=== PATIENT | female | born 1950 | race Caucasian/White ===

== ENCOUNTER → 2018-01-08 | Outpatient (CLI) | payer MEDICARE ==
--- NOTE | 2018-01-09 07:11 | MM ---
Reason for exam: screening (asymptomatic). Last mammogram was performed 1 year and 6 months ago. History: Patient is postmenopausal. Excisional biopsy of the right breast. Physical Findings: A clinical breast exam by your physician is recommended on an annual basis and results should be correlated with mammographic findings. MG 3D Screening Mammo W/Cad Bilateral CC and MLO view(s) were taken. Prior study comparison: July 22, 2016, bilateral MG 3d screening mammo w/cad. January 06, 2015, bilateral MG screening mammo w CAD. There are scattered fibroglandular densities. There is chronic nodularity in the left breast. There is no discrete abnormality. ASSESSMENT: Benign, BI-RAD 2 RECOMMENDATION: Routine screening mammogram of both breasts in 1 year.
== END | disposition home or self-care (01) ==
LOC: RADMAMWWP 10:42
PROVIDERS: ATTEND Family Medicine
DX: Z12.31 Encounter for screening mammogram for malignant neoplasm of breast (principal)
CPT/HCPCS: 77063; 77067

== ENCOUNTER → 2019-07-17 | Outpatient (CLI) | payer MEDICARE ==
--- NOTE | 2019-07-17 09:41 | XR ---
EXAMINATION TYPE: XR shoulder complete RT DATE OF EXAM: 07/17/2019 CLINICAL HISTORY: pain TECHNIQUE: Three views of the right shoulder are obtained. COMPARISON: None FINDINGS: There is no acute fracture/dislocation evident. The acromioclavicular and glenohumeral zaida int spaces appear within normal limits. The visualized ribs are intact and unremarkable. IMPRESSION: 1. There is no acute fracture or dislocation. ICD 10 NO FRACTURE, INITIAL EVALUATION
== END | disposition home or self-care (01) ==
LOC: RADXRYALE 09:16
PROVIDERS: ATTEND Physician Assistant Medical
DX: M25.511 Pain in right shoulder (principal)

== ENCOUNTER → 2019-10-01 | Outpatient (CLI) | payer MEDICARE ==
--- NOTE | 2019-10-01 13:57 | MM ---
Reason for exam: screening (asymptomatic). Last mammogram was performed 1 year and 9 months ago. History: Patient is postmenopausal. Excisional biopsy of the right breast. Physical Findings: A clinical breast exam by your physician is recommended on an annual basis and results should be correlated with mammographic findings. MG 3D Screening Mammo W/Cad Bilateral CC and MLO view(s) were taken. Prior study comparison: January 08, 2018, bilateral MG 3d screening mammo w/cad. July 22, 2016, bilateral MG 3d screening mammo w/cad. The breast tissue is heterogeneously dense. This may lower the sensitivity of mammography. There are benign appearing round calcifications bilaterally. There is no discrete abnormality. ASSESSMENT: Benign, BI-RAD 2 RECOMMENDATION: Routine screening mammogram of both breasts in 1 year.
== END ==
LOC: RADMAMWWP 10:57
PROVIDERS: ATTEND Family Medicine
DX: Z12.31 Encounter for screening mammogram for malignant neoplasm of breast (principal)
CPT/HCPCS: 77063; 77067

== ENCOUNTER → 2019-10-30 | Outpatient (CLI) | payer MEDICARE ==
--- NOTE | 2019-10-30 15:44 | BD ---
EXAMINATION TYPE: Axial Bone Density DATE OF EXAM: 10/30/2019 COMPARISON: 08/31/2015 CLINICAL HISTORY: Height: 64.2 IN Weight: 137 LBS FRAX RISK QUESTIONS: RISK FACTORS HISTORY OF: Active: YES Diet low in dairy products/other sources of calcium: YES Postmenopausal woman: AGE 46 MEDICATIONS: Thyroid Medications: YES Which medication: Levothyroxine How Lon+ YEARS Additional Medications: MULTI VIT, LEVOTHYROXINE, SIMVASTATIN EXAM MEASUREMENTS: Bone mineral densitometry was performed using the [employer] System. Bone mineral density as measured about the Lumbar spine is: ----- L1-L4(G/cm2): 1.093 T Score Values are as follows: ----- L2: -0.8 ----- L3: 0.4 ----- L4: -0.2 ----- L1-L4: -0.7 Bone mineral density has: Decreased -0.8% since study of: 08/31/2015 Bone mineral density about the R hip (g/cm2): 0.707 Bone mineral density about the L hip (g/cm2): 0.701 T Score values are as follows: -----R Neck: -2.4 -----L Neck: -2.4 -----R Total: -2.2 -----L Total: -2.3 Bone mineral density has: Decreased -6.8% since study of: 08/31/2015 IMPRESSION: Osteopenia (T Score between -2.5 and -1). There is slightly increased risk of fracture and the patient may be considered for treatment. Re-Screen 2-5 years. NOTE: T-SCORE=SD OF THE YOUNG ADULT MEAN.
== END | disposition home or self-care (01) ==
LOC: RADBDWWP 12:48
PROVIDERS: ATTEND Family Medicine
DX: M85.88 Other specified disorders of bone density and structure, other site (principal)
CPT/HCPCS: 77080

== ENCOUNTER → 2021-02-02 | Outpatient (CLI) | payer MEDICARE ==
--- NOTE | 2021-02-04 09:09 | MM ---
Reason for exam: screening (asymptomatic). Last mammogram was performed 1 year and 4 months ago. History: Patient is postmenopausal. Excisional biopsy of the right breast. Physical Findings: A clinical breast exam by your physician is recommended on an annual basis and results should be correlated with mammographic findings. MG 3D Screening Mammo W/Cad Bilateral CC and MLO view(s) were taken. Prior study comparison: October 01, 2019, bilateral MG 3d screening mammo w/cad. January 08, 2018, bilateral MG 3d screening mammo w/cad. There are scattered fibroglandular densities. No significant changes when compared with prior studies. ASSESSMENT: Negative, BI-RAD 1 RECOMMENDATION: Routine screening mammogram of both breasts in 1 year.
== END | disposition home or self-care (01) ==
LOC: RADMAMWWP 07:48
PROVIDERS: ATTEND Family Medicine
DX: Z12.31 Encounter for screening mammogram for malignant neoplasm of breast (principal); Z78.0 Asymptomatic menopausal state
CPT/HCPCS: 77063; 77067

== ENCOUNTER → 2022-07-13 | Outpatient (CLI) | payer MEDICARE ==
--- NOTE | 2022-07-13 09:35 | BD ---
EXAMINATION TYPE: Axial Bone Density DATE OF EXAM: 07/13/2022 COMPARISON: 10/30/2019 CLINICAL HISTORY: 72 years year old Female. ICD-10 CODE: M85.9 DISORDER OF BONE DENSITY Height: 64 IN Weight: 133 LBS RISK FACTORS HISTORY OF: Active: YES Postmenopausal woman: AGE 46 MEDICATIONS: Thyroid Medications: YES Which medication: Levothyroxine How Lon+ YEARS Additional Medications: CALCIUM, VIT D,LEVOTHYROXINE, SIMVASTATIN, Additional History: MELANOMA EXAM MEASUREMENTS: Bone mineral densitometry was performed using the [employer] System. Bone mineral density as measured about the Lumbar spine is: ----- L1-L4(G/cm2): 1.091 T Score Values are as follows: ----- L1: -2.4 ----- L2: -1.5 ----- L3: 0.2 ----- L4: 0.3 ----- L1-L4: -0.7 Bone mineral density has: Decreased -1.2% since study of: 10/30/2019 Bone mineral density about the R hip (g/cm2): 0.777 Bone mineral density about the L hip (g/cm2): 0.700 T Score values are as follows: -----R Neck: -1.9 -----L Neck: -2.4 -----R Total: -2.2 -----L Total: -2.4 Bone mineral density has: Decreased -1.1% since study of: 10/30/2019 FRAX%s: The graph provided illustrates a 15.0 chance for a major osteoporotic fx and a 4.5 chance for the hips probability for fx in 10 years time. IMPRESSION: Osteopenia (T Score between -2.5 and -1) is redemonstrated. There is slightly increased risk of fracture and the patient may be considered for treatment. Re-Screen 2-5 years. NOTE: T-SCORE=SD OF THE YOUNG ADULT MEAN.
--- NOTE | 2022-07-14 20:01 | MM ---
Reason for Exam: Screening (asymptomatic). Last mammogram was performed 1 year(s) and 6 month(s) ago. Patient History: Menarche at age 12. First Full-Term at age 22. Postmenopausal. Excisional Biopsy on the Right side. Mother had ovarian cancer, age 53. Risk Values: Aurora 5 year model risk: 1.9%. NCI Lifetime model risk: 4.6%. Prior Study Comparison: 01/08/2018 Bilateral Screening Mammogram, [facility]. 10/01/2019 Bilateral Screening Mammogram, [facility]. 02/02/2021 Bilateral Screening Mammogram, [facility]. Tissue Density: There are scattered fibroglandular densities. Findings: Analyzed By CAD. There is no suspicious group of microcalcifications or new suspicious mass in either breast. Overall Assessment: Negative, BI-RAD 1 Management: Screening Mammogram of both breasts in 1 year. 1. Patient should continue monthly self breast exams. 2. A clinical breast exam by your physician is recommended on an annual basis. 3. This exam should not preclude additional follow-up of suspicious palpable abnormalities. Electronically signed and approved by: Coco Park M.D. Radiologist
== END | disposition home or self-care (01) ==
LOC: RADMAMWWP 07:33
PROVIDERS: ATTEND Family Medicine
DX: Z12.31 Encounter for screening mammogram for malignant neoplasm of breast (principal); M85.89 Other specified disorders of bone density and structure, multiple sites; Z78.0 Asymptomatic menopausal state; Z80.41 Family history of malignant neoplasm of ovary
CPT/HCPCS: 77063; 77067; 77080

== ENCOUNTER 2024-02-05 13:41 | Inpatient (IN) | payer MEDICARE ==
--- NOTE | 2024-02-05 13:59 | ED ---
General Adult HPI - General Chief complaint: Abdominal Pain Stated complaint: Vomiting Time Seen by Provider: 02/05/24 13:48 Source: patient, family, RN notes reviewed Mode of arrival: ambulatory Limitations: no limitations - History of Present Illness Initial comments: Patient is a pleasant 74-year-old female present to the emergency department with concerns for nausea and vomiting. Onset of symptoms was just a couple hours ago. Patient has vomited 4 times. No constipation or diarrhea. No fever. Patient does have some epigastric discomfort that seems to radiate towards the back. No chest pain. No history of similar symptoms previously. - Related Data Home Medications Medication Instructions Recorded Confirmed Calcium Carbonate [Calcium] 600 mg PO HS 02/05/24 02/05/24 Levothyroxine Sodium [Synthroid] 50 mcg PO DAILY 02/05/24 02/05/24 Multivitamins, Thera [Multivitamin 1 tab PO HS 02/05/24 02/05/24 (formulary)] Simvastatin [Zocor] 40 mg PO HS 02/05/24 02/05/24 diphenhydrAMINE HCL [Benadryl] 25 mg PO HS 02/05/24 02/05/24 Allergies Allergy/AdvReac Type Severity Reaction Status Date / Time No Known Allergies Allergy Verified 02/05/24 18:09 Review of Systems ROS Statement: Those systems with pertinent positive or pertinent negative responses have been documented in the HPI. ROS Other: All systems not noted in ROS Statement are negative. Constitutional: Denies: fever Eyes: Denies: eye pain ENT: Denies: ear pain Respiratory: Denies: cough, dyspnea Cardiovascular: Denies: chest pain Endocrine: Denies: fatigue Gastrointestinal: Reports: as per HPI, abdominal pain, nausea, vomiting Genitourinary: Denies: dysuria Musculoskeletal: Reports: as per HPI Skin: Denies: rash Neurological: Denies: weakness Past Medical History Past Medical History: Hyperlipidemia, Thyroid Disorder Past Surgical History: Orthopedic Surgery General Exam Limitations: no limitations General appearance: alert, in no apparent distress Head exam: Present: normocephalic Eye exam: Present: normal appearance Neck exam: Present: normal inspection Respiratory exam: Present: normal lung sounds bilaterally Cardiovascular Exam: Present: regular rate, normal rhythm Expanded Peripheral pulses: 2+: Radial (R), Radial (L), Dorsalis Pedis (R), Dorsalis Pedis (L) GI/Abdominal exam: Present: soft, tenderness (Moderate discomfort epigastrium and right upper quadrant), normal bowel sounds. Absent: distended, guarding, rebound, rigid, pulsatile mass Extremities exam: Present: normal inspection. Absent: pedal edema, calf tenderness Neurological exam: Present: alert Psychiatric exam: Present: normal affect, normal mood Skin exam: Present: normal color Course Vital Signs 02/05/24 02/05/24 02/05/24 13:43 14:00 15:00 Temperature 97.5 F L Pulse Rate 68 85 84 Respiratory 20 18 18 Rate Blood Pressure 181/92 169/79 161/80 O2 Sat by Pulse 99 98 98 Oximetry 02/05/24 02/05/24 16:00 17:00 Temperature Pulse Rate 82 80 Respiratory 18 18 Rate Blood Pressure 147/76 160/86 O2 Sat by Pulse 98 98 Oximetry EKG Findings - EKG Results: EKG: interpreted by ERMD, sinus rhythm, normal axis, normal QRS, normal ST/T Medical Decision Making - Medical Decision Making Was pt. sent in by a medical professional or institution (, PA, RN OTOLARYNGOLOGY, urgent care, hospital, or intermediate...) When possible be specific @ -No Did you speak to anyone other than the patient for history (EMS, parent, family, police, friend...)? What history was obtained from this source @ -No Did you review nursing and triage notes (agree or disagree)? Why? @ -I reviewed and agree with nursing and triage notes Were old charts reviewed (outside hosp., previous admission, EMS record, old EKG, old radiological studies, urgent care reports/EKG's, intermediate records)? Report findings @ -No old charts were reviewed Differential Diagnosis (chest pain, altered mental status, abdominal pain women, abdominal pain men, vaginal bleeding, weakness, fever, dyspnea, syncope, headache, dizziness, GI bleed, back pain, seizure, CVA, palpatations, mental health, musculoskeletal)? @ -Differential Abdominal Pain Women: Appendicitis, Cholecystitis, diverticulosis, ischemic bowel, pancreatitis, hepatitis, UTI, gastroenteritis, AAA, incarcerated hernia, bowel obstruction, constipation, inflammatory bowel, hepatitis, peptic ulcer disease, splenic infarction, perforated viscus, vulvitis, ovarian torsion, PID, kidney stone, placenta abruption, this is not meant to be an all-inclusive list EKG interpreted by me (3pts min.). @ -As above X-rays interpreted by me (1pt min.). @ -None done CT interpreted by me (1pt min.). @ -CT scan abdomen pelvis does show cholelithiasis and distended gallbladder with some intrahepatic ductal dilation U/S interpreted by me (1pt. min.). @ -None done What testing was considered but not performed or refused? (CT, X-rays, U/S, labs)? Why? @ -None What meds were considered but not given or refused? Why? @ -None Did you discuss the management of the patient with other professionals (professionals i.e. DrRiley, PA, RN OTOLARYNGOLOGY, lab, RT, psych nurse, social services coordinator, welding manager, teacher, head correction officer, casework supervisor)? Give summary @ -Case discussed with Dr. Rogers who will admit covering Dr. Nugent. Case also discussed with Dr. Reyes who will consult. Was smoking cessation discussed for >3mins.? @ -No Was critical care preformed (if so, how long)? @ -No Were there social determinants of health that impacted care today? How? (Homelessness, low income, unemployed, alcoholism, drug addiction, transportation, low edu. Level, literacy, decrease access to med. care, long-term, rehab)? @ -No Was there de-escalation of care discussed even if they declined (Discuss DNR or withdrawal of care, Hospice)? DNR status @ -No What co-morbidities impacted this encounter? (DM, HTN, Smoking, COPD, CAD, Cancer, CVA, ARF, Chemo, Hep., AIDS, mental health diagnosis, sleep apnea, morbid obesity)? @ -None Was patient admitted / discharged? Hospital course, mention meds given and route, prescriptions, significant lab abnormalities, going to OR and other pertinent info. @ -Patient reevaluated and still having discomfort. Patient and family updated on results and plan. Patient will be admitted with surgical consult. Admission orders written. Undiagnosed new problem with uncertain prognosis? @ -No Drug Therapy requiring intensive monitoring for toxicity (Heparin, Nitro, Insulin, Cardizem)? @ -No Were any procedures done? @ -No Diagnosis/symptom? @ -Pancreatitis Acute, or Chronic, or Acute on Chronic? @ -Acute Uncomplicated (without systemic symptoms) or Complicated (systemic symptoms)? @ -Default Side effects of treatment? @ -No Exacerbation, Progression, or Severe Exacerbation? @ -No Poses a threat to life or bodily function? How? (Chest pain, [place], [place], pneumonia, PE, COPD, DKA, ARF, appy, cholecystitis, CVA, Diverticulitis, Homicidal, Suicidal, threat to staff... and all critical care pts) @ -No - Lab Data Result diagrams: 02/05/24 14:07 02/05/24 14:07 Lab Results 02/05/24 02/05/24 02/05/24 Range/Units 14:07 14:07 14:07 WBC 16.8 H (3.8-10.6) k/uL RBC 5.39 (3.80-5.40) m/uL Hgb 15.9 (11.4-16.0) gm/dL Hct 48.0 H (34.0-46.0) % MCV 89.0 (80.0-100.0) fL MCH 29.5 (25.0-35.0) pg MCHC 33.1 (31.0-37.0) g/dL RDW 13.0 (11.5-15.5) % Plt Count 235 (150-450) k/uL MPV 8.2 Neutrophils % 80 % Lymphocytes % 14 % Monocytes % 5 % Eosinophils % 1 % Basophils % 1 % Neutrophils # 13.4 H (1.3-7.7) k/uL Lymphocytes # 2.3 (1.0-4.8) k/uL Monocytes # 0.8 (0-1.0) k/uL Eosinophils # 0.1 (0-0.7) k/uL Basophils # 0.1 (0-0.2) k/uL PT 10.6 (10.0-12.5) sec INR 1.0 (<1.2) APTT 22.7 (22.0-30.0) sec Sodium 140 (137-145) mmol/L Potassium 4.1 (3.5-5.1) mmol/L Chloride 105 (98-107) mmol/L Carbon Dioxide 28 (22-30) mmol/L Anion Gap 7 mmol/L BUN 22 H (7-17) mg/dL Creatinine 0.93 (0.52-1.04) mg/dL Est GFR (CKD-EPI)AfAm 70 (>60 ml/min/1.73 sqM) Est GFR (CKD-EPI)NonAf 61 (>60 ml/min/1.73 sqM) Glucose 132 H (74-99) mg/dL Calcium 9.6 (8.4-10.2) mg/dL Total Bilirubin 0.8 (0.2-1.3) mg/dL AST 40 H (14-36) U/L ALT 26 (4-34) U/L Alkaline Phosphatase 98 (38-126) U/L Troponin I (0.000-0.034) ng/mL Total Protein 7.2 (6.3-8.2) g/dL Albumin 4.6 (3.5-5.0) g/dL Amylase 3025 H* (30-110) U/L Lipase >07891 H (23-300) U/L //24 Range/Units 14:07 WBC (3.8-10.6) k/uL RBC (3.80-5.40) m/uL Hgb (11.4-16.0) gm/dL Hct (34.0-46.0) % MCV (80.0-100.0) fL MCH (25.0-35.0) pg MCHC (31.0-37.0) g/dL RDW (11.5-15.5) % Plt Count (150-450) k/uL MPV Neutrophils % % Lymphocytes % % Monocytes % % Eosinophils % % Basophils % % Neutrophils # (1.3-7.7) k/uL Lymphocytes # (1.0-4.8) k/uL Monocytes # (0-1.0) k/uL Eosinophils # (0-0.7) k/uL Basophils # (0-0.2) k/uL PT (10.0-12.5) sec INR (<1.2) APTT (22.0-30.0) sec Sodium (137-145) mmol/L Potassium (3.5-5.1) mmol/L Chloride (98-107) mmol/L Carbon Dioxide (22-30) mmol/L Anion Gap mmol/L BUN (7-17) mg/dL Creatinine (0.52-1.04) mg/dL Est GFR (CKD-EPI)AfAm (>60 ml/min/1.73 sqM) Est GFR (CKD-EPI)NonAf (>60 ml/min/1.73 sqM) Glucose (74-99) mg/dL Calcium (8.4-10.2) mg/dL Total Bilirubin (0.2-1.3) mg/dL AST (14-36) U/L ALT (4-34) U/L Alkaline Phosphatase (38-126) U/L Troponin I <0.012 (0.000-0.034) ng/mL Total Protein (6.3-8.2) g/dL Albumin (3.5-5.0) g/dL Amylase (30-110) U/L Lipase (23-300) U/L Disposition Clinical Impression: Pancreatitis Disposition: ADMITTED IP TO THIS HOSP Is patient prescribed a controlled substance at d/c from ED?: No Referrals: Dani Nugent DO [Primary Care Provider] - 1-2 days Time of Disposition: 18:39
[2024-02-05] MEDS: FAMOTIDINE 20 MG/2 ML VIAL IV STA (14:12)
[2024-02-05] MEDS: ONDANSETRON 4 MG/2 ML VIAL IVP STA ×2 (14:12→17:33)
[2024-02-05] MEDS: SODIUM CHLORIDE 0.9% 1,000 ML IV STA (14:12)
[2024-02-05 14:32] LABS: Partial Thromboplastin Time 22.7 sec (22.0-30.0); Prothrombin Time 10.6 sec (10.0-12.5)
[2024-02-05 14:35] LABS: ALT 26 U/L (4-34); AST 40 U/L (14-36); African American GFR (CKD) 70 (>60 ml/min/1.73 sqM); Albumin 4.6 g/dL (3.5-5.0); Alkaline Phosphatase 98 U/L (38-126); Anion Gap 7 mmol/L; Blood Urea Nitrogen 22 mg/dL (7-17); Calcium 9.6 mg/dL (8.4-10.2); Carbon Dioxide 28 mmol/L (22-30); Chloride 105 mmol/L (98-107); Glucose 132 mg/dL (74-99); Non-African American GFR(CKD) 61 (>60 ml/min/1.73 sqM); Potassium 4.1 mmol/L (3.5-5.1); Sodium 140 mmol/L (137-145); Total Bilirubin 0.8 mg/dL (0.2-1.3); Total Protein 7.2 g/dL (6.3-8.2)
[2024-02-05 14:39] LABS: Basophils # (A) 0.1 k/uL (0-0.2); Basophils % (A) 1 %; Eosinophils # (A) 0.1 k/uL (0-0.7); Eosinophils % (A) 1 %; HGB 15.9 gm/dL (11.4-16.0); Lymphocytes # (A) 2.3 k/uL (1.0-4.8); Lymphocytes % (A) 14 %; MCH 29.5 pg (25.0-35.0); MCHC 33.1 g/dL (31.0-37.0); Mean Platelet Volume 8.2; Monocytes # (A) 0.8 k/uL (0-1.0); Monocytes % (A) 5 %; Neutrophils # (A) 13.4 k/uL (1.3-7.7); Neutrophils % (A) 80 %; Platelet Count 235 k/uL (150-450); RBC 5.39 m/uL (3.80-5.40); WBC 16.8 k/uL (3.8-10.6)
[2024-02-05 15:14] LABS: Amylase 3025 U/L (30-110); Lipase >20000 U/L (23-300)
[2024-02-05] MEDS: HYDROmorphone 0.5 MG/0.5 ML SYRINGE IVP STA (17:30)
--- NOTE | 2024-02-05 18:07 | CT ---
EXAMINATION TYPE: CT abdomen pelvis w con CT DLP: 615.8 mGycm, Automated exposure control for dose reduction was used. DATE OF EXAM: 02/05/2024 3:37 PM COMPARISON: None CLINICAL INDICATION:Female, 74 years old with history of abdominal pain; Abdominal pain and vomiting. TECHNIQUE: Axial CT abdomen pelvis w con;Sagittal and coronal reformats were created on a separate w orkstation. Contrast used:100ml mL of Isovue 300 with IV Contrast, (none if empty) Oral contrast used: without Oral Contrast (none if empty) FINDINGS: LOWER CHEST: Unremarkable ABDOMEN LIVER: Unremarkable GALLBLADDER AND BILE DUCTS: Distended gallbladder with multiple gallstones present. Dilation of the e xtrahepatic biliary system common bile duct measuring up to 9 mm. Mild central and intrahepatic bilia ry dilation. No obstructing stone or mass identified PANCREAS: Unremarkable. SPLEEN: Unremarkable. ADRENAL GLANDS: Unremarkable. KIDNEYS AND URETERS: No evidence of hydronephrosis or renal calculus. The ureters are unremarkable. PELVIS BLADDER: Unremarkable REPRODUCTIVE: Unremarkable. ABDOMEN & PELVIS STOMACH AND BOWEL: No evidence of bowel obstruction. Scattered colonic diverticula. PERITONEUM/RETROPERITONEUM: No evidence of pneumoperitoneum or free fluid. VASCULATURE: No evidence of aortic aneurysm. MUSCULOSKELETAL: No acute osseous abnormalities LYMPH NODES: No gross evidence for lymphadenopathy. SOFT TISSUE/ABDOMINAL WALL: Fat-containing umbilical hernia. IMPRESSION: 1. No evidence to explain the patient's nausea/vomiting. 2. Cholelithiasis with distended gallbladder. Dilation of the extra hepatic and central intrahepatic biliary system up to 9 mm. No evidence for obstructing stone. 3. No evidence for small bowel obstruction.
[2024-02-05] MEDS ORDERED: NALOXONE 0.4 MG/ML 1 ML VIAL IV PRN (18:39)
[2024-02-05] MEDS: SODIUM CHLORIDE 0.9% 1,000 ML IV SCH (18:46)
[2024-02-05] MEDS: METOCLOPRAMIDE 5 MG/ML 2 ML VIAL IVP STA (19:46)
[2024-02-05] MEDS: HYDROmorphone 1 MG/ML 1 ML SYRINGE IVP PRN (20:37)
[2024-02-05] MEDS: ONDANSETRON 4 MG/2 ML VIAL IVP PRN (20:39)
--- NOTE | 2024-02-05 22:33 | P.HPIM ---
History of Present Illness H&P Date: 02/05/24 Chief Complaint: abd pain 74 year old female with hypothyroid , hyperlipidemia patient coming in with sudden onset epigastric abd pain severe 10 out of 10 in severity radiating straight to the back that started couple hours prior to presentation associated with repeated vomiting nonbloody nonbilious denies any diarrhea or GI bleeding denies any similar episodes in the past denies any history of peptic ulcer disease Patient had half a glass of wine the night before however she only drinks on special occasions. Denies any changes in her medications she only takes a statin and thyroid medicine along with Benadryl as needed sleep Patient denies any abdominal distention denies any peptic ulcer disease denies any history of pancreatitis in the ED he was found to have a lipase level above 20,000, CT of the abdomen showed cholelithiasis with dilated biliary tree and distended gallbladder patient denies smoking illicit drugs or heavy alcohol review of systems Pertinent positives as noted in HPI. All other systems were reviewed and are negative on exam Constitutional: No acute distress, conversant, pleasant Eyes: Anicteric sclerae, moist conjunctiva, Pupils equal round reactive to light ENMT: NC/AT Oropharynx clear, no erythema, or exudates Neck: Supple, no masses, or JVD No carotid bruits No thyromegaly Lungs: Clear to auscultation Clear to percussion Normal respiratory effort, no accessory muscle use Cardiovascular: Heart regular in rate and rhythm, No murmurs, gallops, or rubs No peripheral edema Abdominal: Soft Some discomfort to deep palpation of the epigastric region, no guarding, rebound or rigidity Abdomen moving with respiration Normoactive bowel sounds Extremities: No digital cyanosis No clubbing Pedal pulses intact and symmetrical Radial pulses intact and symmetrical No calf tenderness Psychiatric: Alert and oriented to person, place and time Appropriate affect fair judgement Neuro Muscles Strength 5/5 in all 4 extremities Sensation to light touch grossly present throughout Cranial nerves II-XII grossly intact Past Medical History Past Medical History: Hyperlipidemia, Thyroid Disorder Past Surgical History: Orthopedic Surgery Medications and Allergies Home Medications Medication Instructions Recorded Confirmed Type Calcium Carbonate [Calcium] 600 mg PO HS 02/05/24 02/05/24 History Levothyroxine Sodium [Synthroid] 50 mcg PO DAILY 02/05/24 02/05/24 History Multivitamins, Thera [Multivitamin 1 tab PO HS 02/05/24 02/05/24 History (formulary)] Simvastatin [Zocor] 40 mg PO HS 02/05/24 02/05/24 History diphenhydrAMINE HCL [Benadryl] 25 mg PO HS 02/05/24 02/05/24 History Allergies Allergy/AdvReac Type Severity Reaction Status Date / Time No Known Allergies Allergy Verified 02/05/24 18:09 Physical Exam Vitals: Vital Signs Temp Pulse Resp BP Pulse Ox 02/05/24 20:42 70 18 162/73 97 02/05/24 17:00 80 18 160/86 98 02/05/24 16:00 82 18 147/76 98 02/05/24 15:00 84 18 161/80 98 02/05/24 14:00 85 18 169/79 98 02/05/24 13:43 97.5 F L 68 20 181/92 99 Intake and Output 02/05/24 02/05/24 02/05/24 06:59 14:59 22:59 Other: Weight 58.967 kg Results CBC & Chem 7: 02/05/24 14:07 02/05/24 14:07 Labs: Abnormal Lab Results - Last 24 Hours (Table) 02/05/24 02/05/24 Range/Units 14:07 14:07 WBC 16.8 H (3.8-10.6) k/uL Hct 48.0 H (34.0-46.0) % Neutrophils # 13.4 H (1.3-7.7) k/uL BUN 22 H (7-17) mg/dL Glucose 132 H (74-99) mg/dL AST 40 H (14-36) U/L Amylase 3025 H* (30-110) U/L Lipase >04119 H (23-300) U/L Assessment and Plan Assessment: 74-year-old female with hypothyroid hyperlipidemia coming in with sudden onset epigastric abdominal pain repeated nausea vomiting I discussed the case with ED doctor and accepted the admission for acute pancreatitis with evidence of cholelithiasis and dilated biliary tree and distended gallbladder with anticipat ed length of stay more than [address] of the abdomen showed evidence of cholelithiasis with distended gallbladder and dilated biliary tree Strict n.p.o. 1 L normal saline bolus, continue with IV fluid hydration with normal saline 130 cc/h Dilaudid 1 mg every 3 hours IV push as needed for pain Zofran 4 mg IV push every 8 hours as needed for nausea vomiting Monitor BUN, calcium, hematocrit Blood work shows white count of 16.8, hemoglobin 15.9 Sodium 140 potassium 4.1 BUN 22 creatinine 0.93 General surgery consult Due to severity of symptoms and elevated white count cannot rule out acute cholecystitis we will initiate patient on Zosyn 3.375 gm IVPB q8hr hypothyroid , continue with levothyroxin hyperlipidemia hold statin for now full code DVT PPX heparin sc tid 5000 units
[2024-02-05] MEDS: PIPERACILLIN-TAZOBACTAM 3.375 GM in SODIUM CHLORIDE 0.9% 100 ML IVPB STA (23:52)
[2024-02-05] MEDS: SODIUM CHLORIDE 0.9% 1,000 ML IV ONE (23:55)
[2024-02-06] MEDS: LEVOTHYROXINE 50 MCG TAB PO SCH (06:11)
[2024-02-06 08:31] LABS: Basophils # (A) 0.04 X 10*3/uL (0.00-0.10); Basophils % (A) 0.3 %; Eosinophils # (A) 0.02 X 10*3/uL (0.04-0.35); Eosinophils % (A) 0.1 %; HCT 43.3 % (37.2-46.3); HGB 14.3 g/dL (12.0-15.0); Lymphocytes # (A) 1.73 X 10*3/uL (0.90-5.00); Lymphocytes % (A) 11.9 %; MCH 29.5 pg (27.0-32.0); MCV 89.3 FL (80.0-97.0); Mean Platelet Volume 10.2 FL (9.5-12.2); Monocytes # (A) 0.48 X 10*3/uL (0.20-1.00); Monocytes % (A) 3.3 %; NRBC Per 100 WBC 0 X 10*3/uL (0.00-0.01); Neutrophils # (A) 12.21 X 10*3/uL (1.80-7.70); Neutrophils % (A) 84.1 %; Platelet Count 222 X 10*3/uL (140-440); RBC 4.85 X 10*6/uL (4.10-5.20); RDW 13.3 % (11.5-14.5); WBC 14.53 X 10*3/uL (4.50-10.00)
[2024-02-06] MEDS: PANTOPRAZOLE 40 MG/10 ML VIAL IV SCH (08:59)
[2024-02-06] MEDS: PIPERACILLIN-TAZOBACTAM 3.375 GM in SODIUM CHLORIDE 0.9% 100 ML IVPB SCH (08:59)
[2024-02-06 09:06] LABS: ALT 53 U/L (8-44); AST 48 U/L (13-35); Albumin 4.3 g/dL (3.8-4.9); Albumin/Globulin Ratio 2.39 Ratio (1.60-3.17); Alkaline Phosphatase 88 U/L (41-126); BUN/Creat Ratio 25.75 Ratio (12.00-20.00); Blood Urea Nitrogen 20.6 mg/dL (9.0-27.0); Calcium 8.7 mg/dL (8.7-10.3); Carbon Dioxide 20.1 mmol/L (21.6-31.8); Chloride 107 mmol/L (96-109); Globulin 1.8 g/dL (1.6-3.3); Glucose 173 mg/dL (70-110); LDH 192 U/L (120-246); Magnesium 2.1 mg/dL (1.5-2.4); Potassium 4.1 mmol/L (3.5-5.5); Sodium 139 mmol/L (135-145); Total Bilirubin 0.6 mg/dL (0.3-1.2); Total Protein 6.1 g/dL (6.2-8.2)
[2024-02-06 09:21] LABS: Lipase 2519 U/L (14-63)
--- NOTE | 2024-02-06 09:32 | US ---
EXAMINATION TYPE: US abdomen limited DATE OF EXAM: 02/06/2024 COMPARISON: CT 02/05/2024 CLINICAL INDICATION: Female, 74 years old with history of gallstone pancreatitis; Gallstone, pancreat itis per order. TECHNIQUE: Multiple sonographic images of the right upper quadrant are obtained. FINDINGS: EXAM MEASUREMENTS: Liver Length: 16.8 cm Gallbladder Wall: 0.19 cm CBD: 0.89 cm Right Kidney: 9.3 x 5.1 x 4.0 cm BEAD WORKER SEWING NOTES: Exam is limited due to gas. Pancreas: Appears hyperechoic. Tail was obscured by gas. Liver: Appears very heterogeneous. Limited visibility to evaluate for any possible lesions. Coars e in echotexture. Gallbladder: *Appears enlarged measuring 10.6 cm in length. *Hyperechoic foci with posterior shadowing seen within the gallbladder, cluster seen measures: 2.1 x 2.4 x 1.1 cm. Evidence for sonographic May's sign: No CBD: Dilated. Right Kidney: No hydronephrosis or masses seen *Anechoic fluid-appearing area seen adjacent to the gallbladder: 3.2 x 1.3 x 0.4 cm. IMPRESSION: 1. Marked heterogeneity to the liver. Can be associated with diffuse hepatic disease, hepatitis or un derlying hepatocellular disease. 2. Common bile duct dilated measuring 9 mm. The gallbladder is also distended measuring 10.6 cm. Chol elithiasis is noted. Distal CBD obstruction in the differential diagnosis. No wall thickening but the re is a trace amount of pericholecystic fluid. Correlate clinically to assess for cholecystitis. 3. There is a small 3.2 cm fluid collection adjacent to gallbladder fossa indeterminate
[2024-02-06 09:33] LABS: Amylase 1633 U/L (23-121)
--- NOTE | 2024-02-06 11:40 | P.PN ---
Subjective Progress Note Date: 02/06/24 Hospital Course: 74-year-old female with history of hypothyroidism, dyslipidemia presenting with abdominal pain. On arrival, patient was hypertensive, rest of the vital signs within normal limits. White count of 16.8, BUN 22, creatinine 0.93, AST 40, total bili 0.8, ALT 26, ALP 98, troponin negative, aldolase 3000, lipase greater than 20,000. EKG showed normal sinus rhythm. Abdomen pelvis CT showed cholelithiasis with distended gallbladder, dilation of extrahepatic and central intrahepatic biliary system up to 9 mm, no evidence of obstructing stone. General surgery was consulted for acute pancreatitis secondary to gallstones. Patient also started on IV antibiotics. Abdominal ultrasound shows dilated CBD at 9 mm, distended gallbladder at 10.6 cm, cholelithiasis noted, distal CBD obstruction in the differential diagnosis, no wall thickening but there is small amount of pericholecystic fluid, may be consistent with cholecystitis, heterogeneity of liver concerning for diffuse hepatic disease, hepatitis or underlying hepatocellular disease. Subjective: Patient seen and examined at bedside. No acute events overnight. Still having epigastric abdominal pain radiating to her back. Pertinent positives and negatives as discussed above, a complete review of systems was performed and all other systems are negative. Vitals Signs Reviewed. General: Nontoxic, no distress, appears at stated age Derm: Warm, dry Head: Atraumatic, normocephalic, symmetric Eyes: EOMI, no lid lag, anicteric sclera Mouth: No lip lesion, mucus membranes moist Cardiovascular: S1S2 reg, no murmur Lungs: CTA bilateral, no rhonchi, no rales, no accessory muscle use Abdominal: Soft, epigastric tenderness to palpation., No guarding, no appreciable organomegaly Ext: No gross muscle atrophy, no edema, no contractures Neuro: CN II-XI grossly intact, no focal neuro deficits Psych: Alert, oriented, appropriate affect Data Reviewed Today: Pertinent Labs: WBC 14.53, creatinine 0.8, total bili 0.6, AST 48, ALT 53, ALP 88, LDH 192, amylase 1600, lipase 2500. Imaging: Abdominal ultrasound shows dilated CBD at 9 mm, distended gallbladder at 10.6 cm, cholelithiasis noted, distal CBD obstruction in the differential diagnosis, no wall thickening but there is small amount of pericholecystic fluid , may be consistent with cholecystitis, heterogeneity of liver concerning for diffuse hepatic disease, hepatitis or underlying hepatocellular disease. Assessment and Plan: Patient is severely ill, needs close monitoring. Active: Acute gallstone pancreatitis Cholelithiasis, less likely cholecystitis Possible distal choledocholithiasis Leukocytosis -Discussed management with general surgery, keep patient n.p.o., continue pain control with IV Dilaudid as needed, monitor for sedation -Zofran 4 mg IV every 8 hours for nausea vomiting -Low concern for acute cholangitis -However, given elevated white count which may be reactive, will empirically continue IV Zosyn 3.375 g every 8 hours, blood cultures pending -Continue IV fluids at 130 cc an hour normal saline Hypothyroidism -Continue levothyroxine 50 mcg daily Dyslipidemia -Hold statin DVT ppx: Heparin subcu Code status: Full code Anticipated discharge place: Pending clinical course Anticipated discharge time: Pending clinical course Objective - Vital Signs Vital signs: Vital Signs Temp 97.5 F L 02/06/24 07:00 Pulse 80 02/06/24 07:00 Resp 16 02/06/24 07:00 BP 127/56 02/06/24 07:00 Pulse Ox 98 02/06/24 07:00 FiO2 Intake & Output 02/05/24 02/06/24 02/06/24 18:59 06:59 18:59 Weight 58.967 kg - Labs CBC & Chem 7: 02/06/24 03:30 02/06/24 03:30 Labs: Abnormal Lab Results - Last 24 Hours (Table) 02/05/24 02/05/24 02/06/24 Range/Units 14:07 14:07 03:30 WBC 16.8 H 14.53 H (3.8-10.6) k/uL Hct 48.0 H (34.0-46.0) % Immature Gran # 0.05 H (0.00-0.04) X 10*3/uL Neutrophils # 13.4 H 12.21 H (1.3-7.7) k/uL Eosinophils # 0.02 L (0.04-0.35) X 10*3/uL Carbon Dioxide (21.6-31.8) mmol/L BUN 22 H (7-17) mg/dL BUN/Creatinine Ratio (12.00-20.00) Ratio Glucose 132 H (74-99) mg/dL AST 40 H (14-36) U/L ALT (8-44) U/L Total Protein (6.2-8.2) g/dL Amylase 3025 H* (30-110) U/L Lipase >35316 H (23-300) U/L // Range/Units 03:30 WBC (3.8-10.6) k/uL Hct (34.0-46.0) % Immature Gran # (0.00-0.04) X 10*3/uL Neutrophils # (1.3-7.7) k/uL Eosinophils # (0.04-0.35) X 10*3/uL Carbon Dioxide 20.1 L (21.6-31.8) mmol/L BUN (7-17) mg/dL BUN/Creatinine Ratio 25.75 H (12.00-20.00) Ratio Glucose 173 H (74-99) mg/dL AST 48 H (14-36) U/L ALT 53 H (8-44) U/L Total Protein 6.1 L (6.2-8.2) g/dL Amylase 1633 A* (30-110) U/L Lipase 2519 H (23-300) U/L
[2024-02-06] MEDS: HYDROmorphone 0.5 MG/0.5 ML SYRINGE IVP PRN (11:44)
--- NOTE | 2024-02-06 12:40 | P.GSCN ---
History of Present Illness Consult date: 02/06/24 History of present illness: CHIEF COMPLAINT: Abdominal pain HISTORY OF PRESENT ILLNESS: This is a 74-year-old female who presented to the hospital with complaints of right upper quadrant and epigastric abdominal pain that radiated to her back. Symptoms started yesterday morning after breakfast. She had eaten hashbrowns, eggs and toast. Patient reports butter in the hashbrowns and toast. She reports having nausea and vomiting. Patient CT scan had reported gallstones with distended gallbladder. AST minimally elevated at 40 lipase elevated at 20,000. Patient with evidence of gallstone pancreatitis. Patient denies any prior abdominal surgical history. Denies any cardiac history. Denies being on any blood thinners. PAST MEDICAL HISTORY: See below PAST SURGICAL HISTORY: See below MEDICATIONS: See below ALLERGIES: See below SOCIAL HISTORY: No illicit drug use. REVIEW OF SYSTEMS: CONSTITUTIONAL: Denies fever or chills. HEENT: Denies blurred vision, vision changes, or eye pain. Denies hemoptysis CARDIOVASCULAR: Denies chest pain or pressure. RESPIRATORY: No shortness of breath. GASTROINTESTINAL: See HPI for pertinent findings HEMATOLOGIC: Denies bleeding disorders. GENITOURINARY: Denies any blood in urine or increased urinary frequency. SKIN: Denies pruitis. Denies rash. PHYSICAL EXAM: VITAL SIGNS: Reviewed GENERAL: Well-developed in no acute distress. HEENT: No sclera icterus. Extraocular movements grossly intact. Moist buccal mucosa. Head is atraumatic, normocephalic. No nasal drainage. ABDOMEN: Soft. Nondistended. Tenderness palpation to the epigastric and right upper quadrant area NEUROLOGIC: Alert and oriented. Cranial nerves II through XII grossly intact. LABORATORY DATA: WBC 16.8 down to 14.53 Hgb 14.3 platelets 222 Sodium is 139 potassium is 4.1 creatinine 0.8 AST 40 up to 48 ALT 26 up to 53 alk phos 88 Lipase 20,000 down to 2519 amylase 1633 IMAGING: CT scan abdomen pelvis reports cholelithiasis with distended gallbladder. Dilation of the extrahepatic and central intrahepatic biliary system up to 9 mm. No evidence for obstructing stone. No evidence for small bowel obstruction Abdominal ultrasound marked heterogeneity of the liver. Can be associated with diffuse hepatic disease, hepatitis or underlying hepatocellular disease. CBD dilated, measuring 9 mm. Gallbladder distended measuring 10.6 cm. Cholelithiasis. Distal CBD obstruction in the differential diagnosis. No wall thickening. But there is trace amount of pericholecystic fluid. Correlate for cholecystitis. There is a small 3.2 cm fluid collection adjacent to the gallbladder fossa indeterminate. ASSESSMENT: 1. Gallstone pancreatitis 2. Acute cholecystitis 3. Elevated LFTs PLAN: -Keep patient n.p.o. -Continue IV fluids -Continue antibiotics -Continue supportive care -Repeat labs in a.m. -Further recommendations forthcoming per surgeon Physician Wrecking Car Driver note has been reviewed by physician. Signing provider agrees with the documented findings, assessment, and plan of care. I have personally seen and examined the patient, reviewed the CRYPTOLOGIC TECHNICIAN TECHNICAL /PAs history, exam and MDM and agree with the assessment and plan as written. Based on total visit time, I have performed more than 50% of the visit. As above: Patient presents with epigastric pain and diagnostics suggesting gallstone pancreatitis. Common bile duct dilated on both ultrasound and CAT scan however no filling defect visualized. Patient's AST is slightly elevated. Bilirubin and alkaline phosphatase normal. Will proceed with MRCP given the b iliary dilation noted. Possible GI consult pending those results. Patient still having pain and nausea and vomiting issues. Keep n.p.o. for now. Repeat labs tomorrow. Past Medical History Past Medical History: Hyperlipidemia, Thyroid Disorder Past Surgical History: Orthopedic Surgery Medications and Allergies Home Medications Medication Instructions Recorded Confirmed Type Calcium Carbonate [Calcium] 600 mg PO HS 02/05/24 02/05/24 History Levothyroxine Sodium [Synthroid] 50 mcg PO DAILY 02/05/24 02/05/24 History Multivitamins, Thera [Multivitamin 1 tab PO HS 02/05/24 02/05/24 History (formulary)] Simvastatin [Zocor] 40 mg PO HS 02/05/24 02/05/24 History diphenhydrAMINE HCL [Benadryl] 25 mg PO HS 02/05/24 02/05/24 History Allergies Allergy/AdvReac Type Severity Reaction Status Date / Time No Known Allergies Allergy Verified 02/05/24 18:09 Surgical - Exam Vital Signs Temp Pulse Resp BP Pulse Ox 97.5 F L 68 20 181/92 99 02/05/24 13:43 02/05/24 13:43 02/05/24 13:43 02/05/24 13:43 02/05/24 13:43 Results - Labs 02/06/24 03:30 02/06/24 03:30 Abnormal Lab Results - Last 24 Hours (Table) 02/05/24 02/05/24 02/06/24 Range/Units 14:07 14:07 03:30 WBC 16.8 H 14.53 H (3.8-10.6) k/uL Hct 48.0 H (34.0-46.0) % Immature Gran # 0.05 H (0.00-0.04) X 10*3/uL Neutrophils # 13.4 H 12.21 H (1.3-7.7) k/uL Eosinophils # 0.02 L (0.04-0.35) X 10*3/uL Carbon Dioxide (21.6-31.8) mmol/L BUN 22 H (7-17) mg/dL BUN/Creatinine Ratio (12.00-20.00) Ratio Glucose 132 H (74-99) mg/dL AST 40 H (14-36) U/L ALT (8-44) U/L Total Protein (6.2-8.2) g/dL Amylase 3025 H* (30-110) U/L Lipase >48373 H (23-300) U/L 02/06/24 Range/Units 03:30 WBC (3.8-10.6) k/uL Hct (34.0-46.0) % Immature Gran # (0.00-0.04) X 10*3/uL Neutrophils # (1.3-7.7) k/uL Eosinophils # (0.04-0.35) X 10*3/uL Carbon Dioxide 20.1 L (21.6-31.8) mmol/L BUN (7-17) mg/dL BUN/Creatinine Ratio 25.75 H (12.00-20.00) Ratio Glucose 173 H (74-99) mg/dL AST 48 H (14-36) U/L ALT 53 H (8-44) U/L Total Protein 6.1 L (6.2-8.2) g/dL Amylase 1633 A* (30-110) U/L Lipase 2519 H (23-300) U/L Diabetes panel 02/05/24 02/06/24 Range/Units 14:07 03:30 Sodium 140 139 (137-145) mmol/L Potassium 4.1 4.1 (3.5-5.1) mmol/L Chloride 105 107 (98-107) mmol/L Carbon Dioxide 28 20.1 L (22-30) mmol/L BUN 22 H 20.6 (7-17) mg/dL Creatinine 0.93 0.8 (0.52-1.04) mg/dL Glucose 132 H 173 H (74-99) mg/dL Calcium 9.6 8.7 (8.4-10.2) mg/dL AST 40 H 48 H (14-36) U/L ALT 26 53 H (4-34) U/L Alkaline Phosphatase 98 88 (38-126) U/L Total Protein 7.2 6.1 L (6.3-8.2) g/dL Albumin 4.6 4.3 (3.5-5.0) g/dL Calcium panel 02/05/24 02/06/24 Range/Units 14:07 03:30 Calcium 9.6 8.7 (8.4-10.2) mg/dL Albumin 4.6 4.3 (3.5-5.0) g/dL Pituitary panel 02/05/24 02/06/24 Range/Units 14:07 03:30 Sodium 140 139 (137-145) mmol/L Potassium 4.1 4.1 (3.5-5.1) mmol/L Chloride 105 107 (98-107) mmol/L Carbon Dioxide 28 20.1 L (22-30) mmol/L BUN 22 H 20.6 (7-17) mg/dL Creatinine 0.93 0.8 (0.52-1.04) mg/dL Glucose 132 H 173 H (74-99) mg/dL Calcium 9.6 8.7 (8.4-10.2) mg/dL Adrenal panel 02/05/24 02/06/24 Range/Units 14:07 03:30 Sodium 140 139 (137-145) mmol/L Potassium 4.1 4.1 (3.5-5.1) mmol/L Chloride 105 107 (98-107) mmol/L Carbon Dioxide 28 20.1 L (22-30) mmol/L BUN 22 H 20.6 (7-17) mg/dL Creatinine 0.93 0.8 (0.52-1.04) mg/dL Glucose 132 H 173 H (74-99) mg/dL Calcium 9.6 8.7 (8.4-10.2) mg/dL Total Bilirubin 0.8 0.6 (0.2-1.3) mg/dL AST 40 H 48 H (14-36) U/L ALT 26 53 H (4-34) U/L Alkaline Phosphatase 98 88 (38-126) U/L Total Protein 7.2 6.1 L (6.3-8.2) g/dL Albumin 4.6 4.3 (3.5-5.0) g/dL
[2024-02-06] MEDS: METOCLOPRAMIDE 5 MG/ML 2 ML VIAL IVP SCH (16:09)
[2024-02-06] MEDS: HEPARIN SODIUM,PORCINE 5,000 UNIT/ML 1 ML VIAL SQ SCH (16:13)
[2024-02-07 08:04] LABS: Basophils % (A) 0 %; Eosinophils # (A) 0.1 k/uL (0-0.7); Eosinophils % (A) 0 %; HCT 40.2 % (34.0-46.0); HGB 13.2 gm/dL (11.4-16.0); Lymphocytes # (A) 2.2 k/uL (1.0-4.8); Lymphocytes % (A) 13 %; MCH 29.7 pg (25.0-35.0); MCHC 32.8 g/dL (31.0-37.0); MCV 90.5 fL (80.0-100.0); Mean Platelet Volume 8.1; Monocytes # (A) 0.9 k/uL (0-1.0); Monocytes % (A) 6 %; Neutrophils # (A) 13.1 k/uL (1.3-7.7); Neutrophils % (A) 80 %; Platelet Count 164 k/uL (150-450); RBC 4.45 m/uL (3.80-5.40); RDW 13.4 % (11.5-15.5); WBC 16.4 k/uL (3.8-10.6)
[2024-02-07 08:12] LABS: ALT 30 U/L (4-34); AST 27 U/L (14-36); African American GFR (CKD) >90 (>60 ml/min/1.73 sqM); Albumin 3.3 g/dL (3.5-5.0); Alkaline Phosphatase 67 U/L (38-126); Anion Gap 3 mmol/L; Blood Urea Nitrogen 18 mg/dL (7-17); Calcium 8.4 mg/dL (8.4-10.2); Carbon Dioxide 25 mmol/L (22-30); Chloride 110 mmol/L (98-107); Glucose 97 mg/dL (74-99); Lipase 585 U/L (23-300); Non-African American GFR(CKD) 78 (>60 ml/min/1.73 sqM); Potassium 3.8 mmol/L (3.5-5.1); Sodium 138 mmol/L (137-145); Total Bilirubin 0.5 mg/dL (0.2-1.3); Total Protein 5.3 g/dL (6.3-8.2)
--- NOTE | 2024-02-07 11:32 | P.PN ---
Subjective Progress Note Date: 02/07/24 Hospital Course: 74-year-old female with history of hypothyroidism, dyslipidemia presenting with abdominal pain. On arrival, patient was hypertensive, rest of the vital signs within normal limits. White count of 16.8, BUN 22, creatinine 0.93, AST 40, total bili 0.8, ALT 26, ALP 98, troponin negative, aldolase 3000, lipase greater than 20,000. EKG showed normal sinus rhythm. Abdomen pelvis CT showed cholelithiasis with distended gallbladder, dilation of extrahepatic and central intrahepatic biliary system up to 9 mm, no evidence of obstructing stone. General surgery was consulted for acute pancreatitis secondary to gallstones. Patient also started on IV antibiotics. Abdominal ultrasound shows dilated CBD at 9 mm, distended gallbladder at 10.6 cm, cholelithiasis noted, distal CBD obstruction in the differential diagnosis, no wall thickening but there is small amount of pericholecystic fluid, may be consistent with cholecystitis, heterogeneity of liver concerning for diffuse hepatic disease, hepatitis or underlying hepatocellular disease. Pending MRCP. Subjective: Patient seen and examined at bedside. No acute events overnight. Still having epigastric abdominal pain, but improved compared to couple of days ago. Still having abdominal pain with any oral intake. Pertinent positives and negatives as discussed above, a complete review of systems was performed and all other systems are negative. Vitals Signs Reviewed. General: Nontoxic, no distress, appears at stated age Derm: Warm, dry Head: Atraumatic, normocephalic, symmetric Eyes: EOMI, no lid lag, anicteric sclera Mouth: No lip lesion, mucus membranes moist Cardiovascular: S1S2 reg, no murmur Lungs: CTA bilateral, no rhonchi, no rales, no accessory muscle use Abdominal: Soft, epigastric tenderness to palpation., No guarding, no appreciable organomegaly Ext: No gross muscle atrophy, no edema, no contractures Neuro: CN II-XI grossly intact, no focal neuro deficits Psych: Alert, oriented, appropriate affect Data Reviewed Today: Pertinent Labs: WBC 16.4, BUN 18, creatinine 0.75, lipase 585, total bili 0.5, AST 27, ALT 30, ALP 67 Imaging: No new imaging Assessment and Plan: Active: Acute gallstone pancreatitis Cholelithiasis, possible acute cholecystitis Distal choledocholithiasis not ruled out Leukocytosis -General surgery following, patient pending MRCP -continue pain control with IV Dilaudid as needed, monitor for sedation -Zofran 4 mg IV every 8 hours for nausea vomiting -Low concern for acute cholangitis -However, given elevated white count which may be reactive, will empirically continue IV Zosyn 3.375 g every 8 hours, blood cultures pending -Continue IV fluids at 130 cc an hour normal saline Hypothyroidism -Continue levothyroxine 50 mcg daily Dyslipidemia -Hold statin, restart at the time of discharge DVT ppx: Heparin subcu Code status: Full code Anticipated discharge place: Pending clinical course Anticipated discharge time: Pending clinical course Objective - Vital Signs Vital signs: Vital Signs Temp 97.4 F L 02/07/24 07:00 Pulse 87 02/07/24 07:00 Resp 16 02/07/24 07:00 BP 129/63 02/07/24 07:00 Pulse Ox 92 L 02/07/24 07:00 FiO2 Intake & Output 02/06/24 02/07/24 02/07/24 18:59 06:59 18:59 Weight 58.967 kg Other: # Voids 1 2 1 - Labs CBC & Chem 7: 02/07/24 07:46 02/07/24 07:46 Labs: Abnormal Lab Results - Last 24 Hours (Table) 02/07/24 02/07/24 Range/Units 07:46 07:46 WBC 16.4 H (3.8-10.6) k/uL Neutrophils # 13.1 H (1.3-7.7) k/uL Chloride 110 H (98-107) mmol/L BUN 18 H (7-17) mg/dL Total Protein 5.3 L (6.3-8.2) g/dL Albumin 3.3 L (3.5-5.0) g/dL Lipase 585 H (23-300) U/L
--- NOTE | 2024-02-07 12:33 | P.PN ---
Subjective Progress Note Date: 02/07/24 CHIEF COMPLAINT: Abdominal pain HISTORY OF PRESENT ILLNESS: Patient mated with gallstone pancreatitis. She reports she has had some decrease in the epigastric pain. She did eat a few bites of Jell-O that did cause pain. She denies any nausea or vomiting. She is not needing the pain medications as frequent. Afebrile. WBC is up from 14-16.4 total bilirubin 0.5 LFTs have normalized AST 27 ALT 30 alk phos 67 lipase trending down to 585 PHYSICAL EXAM: VITAL SIGNS: Reviewed. GENERAL: Well-developed in no acute distress. HEENT: No sclera icterus. ABDOMEN: Soft. Nondistended. Mild tenderness with palpation to epigastric and right upper quadrant NEUROLOGIC: Alert and oriented. Cranial nerves II through XII grossly intact. ASSESSMENT: 1. Gallstone pancreatitis 2. Acute cholecystitis 3. Elevated LFTs have normalized PLAN: -Keep patient n.p.o. except ice chips -Continue IV fluids -Continue antibiotics -Repeat labs in a.m. -Awaiting MRCP to be completed due to patient having biliary dilation noted on ultrasound and CAT scan Physician Repairer Resistance Welding Machines note has been reviewed by physician. Signing provider agrees with the documented findings, assessment, and plan of care. I have personally seen and examined the patient, reviewed the FILM NUMBERER /PAs history, exam and MDM and agree with the assessment and plan as written. Based on total visit time, I have performed more than 50% of the visit. As above: Patient complaining of mild epigastric discomfort after liquid diet. Labs are improved. Still with mild tenderness epigastric region. MRCP ordered. Await those findings. Objective - Vital Signs Vital signs: Vital Signs Temp 97.4 F L 02/07/24 07:00 Pulse 87 02/07/24 07:00 Resp 16 02/07/24 07:00 BP 129/63 02/07/24 07:00 Pulse Ox 92 L 02/07/24 07:00 FiO2 Intake & Output 02/06/24 02/07/24 02/07/24 18:59 06:59 18:59 Weight 58.967 kg Other: # Voids 1 2 1 - Labs CBC & Chem 7: 02/07/24 07:46 02/07/24 07:46 Labs: Abnormal Lab Results - Last 24 Hours (Table) 02/07/24 02/07/24 Range/Units 07:46 07:46 WBC 16.4 H (3.8-10.6) k/uL Neutrophils # 13.1 H (1.3-7.7) k/uL Chloride 110 H (98-107) mmol/L BUN 18 H (7-17) mg/dL Total Protein 5.3 L (6.3-8.2) g/dL Albumin 3.3 L (3.5-5.0) g/dL Lipase 585 H (23-300) U/L
[2024-02-08 09:17] LABS: Basophils # (A) 0.1 k/uL (0-0.2); Basophils % (A) 0 %; Eosinophils # (A) 0.1 k/uL (0-0.7); Eosinophils % (A) 1 %; HCT 37.3 % (34.0-46.0); HGB 12.6 gm/dL (11.4-16.0); Lymphocytes # (A) 2.5 k/uL (1.0-4.8); Lymphocytes % (A) 19 %; MCH 30.4 pg (25.0-35.0); MCHC 33.8 g/dL (31.0-37.0); Mean Platelet Volume 8.2; Monocytes # (A) 0.7 k/uL (0-1.0); Monocytes % (A) 6 %; Neutrophils # (A) 9.8 k/uL (1.3-7.7); Neutrophils % (A) 73 %; Platelet Count 135 k/uL (150-450); RBC 4.15 m/uL (3.80-5.40); WBC 13.3 k/uL (3.8-10.6)
[2024-02-08 09:29] LABS: ALT 22 U/L (4-34); AST 20 U/L (14-36); African American GFR (CKD) 87 (>60 ml/min/1.73 sqM); Albumin 3.1 g/dL (3.5-5.0); Alkaline Phosphatase 70 U/L (38-126); Anion Gap 7 mmol/L; Blood Urea Nitrogen 15 mg/dL (7-17); Calcium 8.4 mg/dL (8.4-10.2); Carbon Dioxide 20 mmol/L (22-30); Chloride 110 mmol/L (98-107); Glucose 77 mg/dL (74-99); Lipase 108 U/L (23-300); Non-African American GFR(CKD) 76 (>60 ml/min/1.73 sqM); Potassium 3.5 mmol/L (3.5-5.1); Sodium 137 mmol/L (137-145); Total Bilirubin 0.5 mg/dL (0.2-1.3); Total Protein 5.4 g/dL (6.3-8.2)
--- NOTE | 2024-02-08 12:49 | P.PN ---
Subjective Progress Note Date: 02/08/24 CHIEF COMPLAINT: Abdominal pain HISTORY OF PRESENT ILLNESS: Patient admitted with gallstone pancreatitis. Patient continues to have epigastric abdominal pain. She reports the pain is improving. She has had nausea. She reports having flatus. Afebrile. WBC is down from 16-13 LFTs are normal lipase is normalized at 108 PHYSICAL EXAM: VITAL SIGNS: Reviewed. GENERAL: Well-developed in no acute distress. HEENT: No sclera icterus. ABDOMEN: Soft. Nondistended. Mild tenderness with palpation to epigastric and right upper quadrant NEUROLOGIC: Alert and oriented. Cranial nerves II through XII grossly intact. ASSESSMENT: 1. Gallstone pancreatitis 2. Acute cholecystitis 3. Elevated LFTs have normalized PLAN: -Patient scheduled for MRCP today -Advance diet to clear liquids for dinner -Continue IV fluids -Continue antibiotics Physician Roller Cleaner note has been reviewed by physician. Signing provider agrees with the documented findings, assessment, and plan of care. I have personally seen and examined the patient, reviewed the BODY REPAIRER /PAs history, exam and MDM and agree with the assessment and plan as written. Based on total visit time, I have performed more than 50% of the visit. As above: Patient's pain is improved. Labs improved as well. Mild epigastric tenderness. MRCP scheduled for today. Hopefully can advance diet gradually at this point. Anticipate probable discharge with outpatient cholecystectomy in the next 1 to 2 weeks. Objective - Vital Signs Vital signs: Vital Signs Temp 98.0 F 02/08/24 07:15 Pulse 66 02/08/24 07:15 Resp 17 02/08/24 07:15 BP 152/69 02/08/24 07:15 Pulse Ox 94 L 02/08/24 07:15 FiO2 Intake & Output 02/07/24 02/08/24 02/08/24 18:59 06:59 18:59 Other: # Voids 1 1 1 - Labs CBC & Chem 7: 02/08/24 08:46 02/08/24 08:46 Labs: Abnormal Lab Results - Last 24 Hours (Table) 02/08/24 02/08/24 Range/Units 08:46 08:46 WBC 13.3 H (3.8-10.6) k/uL Plt Count 135 L (150-450) k/uL Neutrophils # 9.8 H (1.3-7.7) k/uL Chloride 110 H (98-107) mmol/L Carbon Dioxide 20 L (22-30) mmol/L Total Protein 5.4 L (6.3-8.2) g/dL Albumin 3.1 L (3.5-5.0) g/dL Microbiology - Last 24 Hours (Table) 02/05/24 22:55 Blood Culture - Preliminary Blood 02/05/24 22:40 Blood Culture - Preliminary Blood
--- NOTE | 2024-02-08 17:57 | P.PN ---
Subjective Progress Note Date: 02/08/24 Hospital Course: 74-year-old female with history of hypothyroidism, dyslipidemia presenting with abdominal pain. On arrival, patient was hypertensive, rest of the vital signs within normal limits. White count of 16.8, BUN 22, creatinine 0.93, AST 40, total bili 0.8, ALT 26, ALP 98, troponin negative, aldolase 3000, lipase greater than 20,000. EKG showed normal sinus rhythm. Abdomen pelvis CT showed cholelithiasis with distended gallbladder, dilation of extrahepatic and central intrahepatic biliary system up to 9 mm, no evidence of obstructing stone. General surgery was consulted for acute pancreatitis secondary to gallstones. Patient also started on IV antibiotics. Abdominal ultrasound shows dilated CBD at 9 mm, distended gallbladder at 10.6 cm, cholelithiasis noted, distal CBD obstruction in the differential diagnosis, no wall thickening but there is small amount of pericholecystic fluid, may be consistent with cholecystitis, heterogeneity of liver concerning for diffuse hepatic disease, hepatitis or underlying hepatocellular disease. Pending MRCP. Subjective: Patient seen this morning. She is denying any abdominal pain. Vitals Signs Reviewed. 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 -Zofran 4 mg IV every 8 hours for nausea vomiting -Low concern for acute cholangitis -However, given elevated white count which may be reactive, will empirically continue IV Zosyn 3.375 g every 8 hours, blood cultures pending -Patient's lipase this morning is 108. -Patient's liver enzymes and bilirubin are within normal limits -WBC is improving and is 13.3 Hypothyroidism -Continue levothyroxine 50 mcg daily Dyslipidemia -Hold statin, restart at the time of discharge DVT ppx: Heparin subcu Code status: Full code Anticipated discharge place: Pending clinical course Anticipated discharge time: Pending clinical course Objective - Vital Signs Vital signs: Vital Signs Temp 98.7 F 02/08/24 17:10 Pulse 89 02/08/24 17:10 Resp 19 02/08/24 17:10 BP 163/77 02/08/24 17:10 Pulse Ox 96 02/08/24 17:10 FiO2 Intake & Output 02/07/24 02/08/24 02/08/24 18:59 06:59 18:59 Other: # Voids 1 1 1 - Labs CBC & Chem 7: 02/08/24 08:46 02/08/24 08:46 Labs: Abnormal Lab Results - Last 24 Hours (Table) 02/08/24 02/08/24 Range/Units 08:46 08:46 WBC 13.3 H (3.8-10.6) k/uL Plt Count 135 L (150-450) k/uL Neutrophils # 9.8 H (1.3-7.7) k/uL Chloride 110 H (98-107) mmol/L Carbon Dioxide 20 L (22-30) mmol/L Total Protein 5.4 L (6.3-8.2) g/dL Albumin 3.1 L (3.5-5.0) g/dL Microbiology - Last 24 Hours (Table) 02/05/24 22:55 Blood Culture - Preliminary Blood 02/05/24 22:40 Blood Culture - Preliminary Blood
--- NOTE | 2024-02-09 09:02 | MR ---
EXAMINATION TYPE: MR pancreas / mrcp wo/w con DATE OF EXAM: 02/08/2024 1:39 PM CLINICAL INDICATION:Female, 74 years old with history of Gallstone pancreatitis, dilated bile duct, G allstone pancreatitis, dilated bile duct. COMPARISON: CT 02/05/2024. US 02/06/2024. TECHNIQUE MRI ABDOMEN WITH CONTRAST: Multiplanar multi-sequence imaging was performed without and wit h IV contrast/gadolinium. The patient was given 6.5 cc Gadavist gadolinium intravenously and dynamic post-VIBE (volumetric interpolated breath-hold gradient recall echo) imaging was performed. IV Contrast: 6.5 cc Gadavist TECHNIQUE MRCP ABDOMEN WITHOUT CONTRAST: Multi planar, T2-weighted imaging with and without fat satur ation and chemical shift imaging was performed of the abdomen. Then, heavily T2 weighted imaging (mary f-Fourier acquisition single-shot turbo spin-echo) was utilized in order to study the biliary system. Maximum intensity projection images were reconstructed from the original data of the biliary tree. 3D reconstructions and MIP imaging performed on a separate workstation. FINDINGS: MRCP: * The common bile duct at the level of the pancreatic head measures 7mm in size. * The common hepatic duct measures 10 mm in size. * The pancreatic duct is prominent measuring up to 4 mm. LOWER CHEST: Trace bilateral pleural effusions. ABDOMEN Liver: No evidence for cirrhosis. Signal dropout on chemical shift out of phase imaging. Gallbladder and Bile ducts: There is gallbladder wall thickening is present with pericholecystic flui d. Gallstones are present. Pancreas: No ductal dilation. No evidence for solid mass. Spleen: Normal for size. Adrenal glands: Unremarkable. Kidneys: No evidence for obstructive uropathy. No suspicious renal masses. Stomach and Bowel: No evidence for bowel wall thickening or evidence for obstruction. Retroperitoneum/Peritoneum: No evidence of pneumoperitoneum or free fluid. Vasculature: No aortic aneurysm. Musculoskeletal: The osseous structures appear intact. Scoliosis changes in the apex L3-L4. Lymph Nodes: No gross evidence for lymphadenopathy. Abdominal wall: Unremarkable. IMPRESSION: 1. Findings compatible with acute cholecystitis. 2. No evidence to suggest ductal stricture or choledocholithiasis. 3. Hepatic steatosis 4. Trace bilateral pleural effusions. Findings communicated to Tirso Diop 02/09/2024 8:[address] Aryan Garcia.
--- NOTE | 2024-02-09 10:55 | P.PN ---
Subjective Progress Note Date: 02/09/24 Hospital Course: 74-year-old female with history of hypothyroidism, dyslipidemia presenting with abdominal pain. On arrival, patient was hypertensive, rest of the vital signs within normal limits. White count of 16.8, BUN 22, creatinine 0.93, AST 40, total bili 0.8, ALT 26, ALP 98, troponin negative, aldolase 3000, lipase greater than 20,000. EKG showed normal sinus rhythm. Abdomen pelvis CT showed cholelithiasis with distended gallbladder, dilation of extrahepatic and central intrahepatic biliary system up to 9 mm, no evidence of obstructing stone. General surgery was consulted for acute pancreatitis secondary to gallstones. Patient also started on IV antibiotics. Abdominal ultrasound shows dilated CBD at 9 mm, distended gallbladder at 10.6 cm, cholelithiasis noted, distal CBD obstruction in the differential diagnosis, no wall thickening but there is small amount of pericholecystic fluid, may be consistent with cholecystitis, heterogeneity of liver concerning for diffuse hepatic disease, hepatitis or underlying hepatocellular disease. MRCP showed findings consistent with acute cholecystitis and did not show any choledocholithiasis. Subjective: Patient seen this morning. She is complaining of some soreness in her right upper quadrant Vitals Signs Reviewed. 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 Patient is tolerating her diet -Zofran 4 mg IV every 8 hours for nausea vomiting -Resume IV Zosyn 3.375 g every 8 hours -Blood cultures reviewed and are negative to date -MRCP reviewed and did not show any choledocholithiasis but did show findings consistent with acute cholecystitis -Awaiting for further recommendations from general surgery Hypothyroidism -Continue levothyroxine 50 mcg daily Dyslipidemia -Hold statin, restart at the time of discharge DVT ppx: Heparin subcu Code status: Full code Anticipated discharge place: Home Anticipated discharge time: Depending on general surgery recommendations Objective - Vital Signs Vital signs: Vital Signs Temp 98 F 02/09/24 07:00 Pulse 61 02/09/24 07:00 Resp 16 02/09/24 07:00 BP 159/74 02/09/24 07:00 Pulse Ox 96 02/09/24 07:00 FiO2 Intake & Output 02/08/24 02/09/24 02/09/24 18:59 06:59 18:59 Intake Total 240 590 Balance 240 590 Intake: Oral 240 590 Other: Voiding Method Toilet Toilet # Voids 1 2 - Labs CBC & Chem 7: 02/08/24 08:46 02/08/24 08:46 Labs: Microbiology - Last 24 Hours (Table) 02/05/24 22:55 Blood Culture - Preliminary Blood 02/05/24 22:40 Blood Culture - Preliminary Blood
[2024-02-09 11:14] LABS: Basophils # (A) 0.06 X 10*3/uL (0.00-0.10); Basophils % (A) 0.4 %; Eosinophils # (A) 0.31 X 10*3/uL (0.04-0.35); Eosinophils % (A) 2.3 %; HCT 40.7 % (37.2-46.3); HGB 13.4 g/dL (12.0-15.0); Lymphocytes # (A) 2.99 X 10*3/uL (0.90-5.00); Lymphocytes % (A) 22.3 %; MCH 28.9 pg (27.0-32.0); MCHC 32.9 g/dL (32.0-37.0); MCV 87.7 FL (80.0-97.0); Monocytes # (A) 0.95 X 10*3/uL (0.20-1.00); Monocytes % (A) 7.1 %; NRBC Per 100 WBC 0 X 10*3/uL (0.00-0.01); Neutrophils # (A) 9.06 X 10*3/uL (1.80-7.70); Neutrophils % (A) 67.5 %; Platelet Count 170 X 10*3/uL (140-440); RBC 4.64 X 10*6/uL (4.10-5.20); RDW 13.1 % (11.5-14.5); WBC 13.43 X 10*3/uL (4.50-10.00)
[2024-02-09] MEDS ORDERED: METOCLOPRAMIDE 5 MG/ML 2 ML VIAL IVP PRN (11:39)
[2024-02-09 11:41] LABS: ALT 18 U/L (8-44); AST 14 U/L (13-35); Albumin 3.7 g/dL (3.8-4.9); Albumin/Globulin Ratio 2.06 Ratio (1.60-3.17); Alkaline Phosphatase 68 U/L (41-126); BUN/Creat Ratio 17.43 Ratio (12.00-20.00); Blood Urea Nitrogen 12.2 mg/dL (9.0-27.0); Calcium 8.7 mg/dL (8.7-10.3); Carbon Dioxide 19.8 mmol/L (21.6-31.8); Chloride 108 mmol/L (96-109); Globulin 1.8 g/dL (1.6-3.3); Glucose 94 mg/dL (70-110); Potassium 3.5 mmol/L (3.5-5.5); Sodium 141 mmol/L (135-145); Total Bilirubin 0.5 mg/dL (0.3-1.2); Total Protein 5.5 g/dL (6.2-8.2)
[2024-02-09 13:21] VITALS: BP 154/65; PULSE 54; RESP 17; TEMP 98.2
--- NOTE | 2024-02-09 13:35 | P.PN ---
Subjective Progress Note Date: 02/09/24 CHIEF COMPLAINT: Abdominal pain HISTORY OF PRESENT ILLNESS: Patient admitted with gallstone pancreatitis. Patient is feeling better today. She denies any abdominal pain. She tolerated the liquid diet without any pain or nausea. Denies any vomiting. Afebrile. She is asking to go home. MRCP showed no evidence of choledocholithiasis. Did report evidence of acute cholecystitis. WBC 13.43 Hgb 13.4 platelets 170 sodium 141 potassium 3.5 creatinine 0.7 PHYSICAL EXAM: VITAL SIGNS: Reviewed. GENERAL: Well-developed in no acute distress. HEENT: No sclera icterus. ABDOMEN: Soft. Nondistended. Very mild discomfort epigastric and right upper quadrant with palpation NEUROLOGIC: Alert and oriented. Cranial nerves II through XII grossly intact. ASSESSMENT: 1. Gallstone pancreatitis 2. Acute cholecystitis 3. Elevated LFTs have normalized PLAN: -Continue clear liquid diet for now until seen by surgeon -Continue antibiotics -Further recommendations forthcoming per surgeon Physician Inside Finisher note has been reviewed by physician. Signing provider agrees with the documented findings, assessment, and plan of care. I have personally seen and examined the patient, reviewed the RECOVERY ENGINEER /PAs history, exam and MDM and agree with the assessment and plan as written. Based on total visit time, I have performed more than 50% of the visit. As above: Patient doing well today. MRCP results noted. Patient has no pain. Labs improved. May discharge. Follow-up in office to schedule outpatient cholecystectomy. Objective - Vital Signs Vital signs: Vital Signs Temp 98.2 F 02/09/24 13:14 Pulse 54 L 02/09/24 13:14 Resp 17 02/09/24 13:14 BP 154/65 02/09/24 13:14 Pulse Ox 96 02/09/24 13:14 FiO2 Intake & Output 02/08/24 02/09/24 02/09/24 18:59 06:59 18:59 Intake Total 240 590 Balance 240 590 Intake: Oral 240 590 Other: Voiding Method Toilet Toilet # Voids 1 2 - Labs CBC & Chem 7: 02/09/24 07:09 02/09/24 07:09 Labs: Abnormal Lab Results - Last 24 Hours (Table) 02/09/24 02/09/24 Range/Units 07:09 07:09 WBC 13.43 H (4.50-10.00) X 10*3/uL Immature Gran # 0.06 H (0.00-0.04) X 10*3/uL Neutrophils # 9.06 H (1.80-7.70) X 10*3/uL Carbon Dioxide 19.8 L (21.6-31.8) mmol/L Anion Gap 13.20 H (4.00-12.00) mmol/L Total Protein 5.5 L (6.2-8.2) g/dL Albumin 3.7 L (3.8-4.9) g/dL Microbiology - Last 24 Hours (Table) 02/05/24 22:55 Blood Culture - Preliminary Blood 02/05/24 22:40 Blood Culture - Preliminary Blood
--- NOTE | 2024-02-09 16:04 | P.DS ---
Providers Date of admission: 02/05/24 18:43 Attending physician: Annika Dunn MD Consults: 02/05/24 18:39 Consult Physician Routine Consulting Provider: Hermes Elizabeth Consult Reason/Comments: Pancreatitis, gallstone Do you want consulting provider notified?: Already Contacted [facility] [place] [facility] Course: Discharge Diagnosis: Acute gallstone pancreatitis Acute cholecystitis Choledocholithiasis ruled out Hypothyroidism Dyslipidemia Hospital Course: 74-year-old female with history of hypothyroidism, dyslipidemia presenting with abdominal pain. On arrival, patient was hypertensive, rest of the vital signs within normal limits. White count of 16.8, BUN 22, creatinine 0.93, AST 40, total bili 0.8, ALT 26, ALP 98, troponin negative, aldolase 3000, lipase greater than 20,000. EKG showed normal sinus rhythm. Abdomen pelvis CT showed cholelithiasis with distended gallbladder, dilation of extrahepatic and central intrahepatic biliary system up to 9 mm, no evidence of obstructing stone. General surgery was consulted for acute pancreatitis secondary to gallstones. Patient also started on IV antibiotics. Abdominal ultrasound shows dilated CBD at 9 mm, distended gallbladder at 10.6 cm, cholelithiasis noted, distal CBD obstruction in the differential diagnosis, no wall thickening but there is small amount of pericholecystic fluid, may be consistent with cholecystitis, heterogeneity of liver concerning for diffuse hepatic disease, hepatitis or underlying hepatocellular disease. MRCP showed findings consistent with acute cholecystitis and did not show any choledocholithiasis. Patient's pain did improve. She tolerated her diet. General surgery cleared the patient for discharge and plan to do cholecystectomy outpatient. I will discharge the patient on Augmentin for 10 more days. Patient instructed to eat a GI soft diet. Patient seen and examined at bedside.[] Vital signs reviewed and stable. 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 Patient Condition at Discharge: Fair Plan - Discharge Summary Discharge Rx Participant: No New Discharge Prescriptions: New Amoxic-Pot Clav 875-125Mg [Augmentin 875-125] 1 tab PO BID 10 Days #20 tab Continue Multivitamins, Thera [Multivitamin (formulary)] 1 tab PO HS diphenhydrAMINE HCL [Benadryl] 25 mg PO HS Simvastatin [Zocor] 40 mg PO HS Levothyroxine Sodium [Synthroid] 50 mcg PO DAILY Calcium Carbonate [Calcium] 600 mg PO HS Discharge Medication List Calcium Carbonate [Calcium] 600 mg PO HS 02/05/24 [History] Levothyroxine Sodium [Synthroid] 50 mcg PO DAILY 02/05/24 [History] Multivitamins, Thera [Multivitamin (formulary)] 1 tab PO HS 02/05/24 [History] Simvastatin [Zocor] 40 mg PO HS 02/05/24 [History] diphenhydrAMINE HCL [Benadryl] 25 mg PO HS 02/05/24 [History] Amoxic-Pot Clav 875-125Mg [Augmentin 875-125] 1 tab PO BID 10 Days #20 tab 02/09/24 [Rx] Follow up Appointment(s)/Referral(s): Hermes Elizabeth MD [Medical Doctor] - 1 Week Dani Nugent DO [Primary Care Provider] - 1-2 days Discharge Disposition: HOME SELF-CARE
== END 2024-02-09 17:33 | disposition home or self-care (01) | DRG 439 ==
LOC: EC 13:41 → 4SSUR 18:43 → 1SOBS 02-06 06:17 → 5NMEDONC 02-08 16:21
PROVIDERS: ADMIT Internal Medicine; ATTEND Internal Medicine
DX: K85.10 Biliary acute pancreatitis without necrosis or infection (principal); K80.00 Calculus of gallbladder with acute cholecystitis without obstruction; E03.9 Hypothyroidism, unspecified; E78.5 Hyperlipidemia, unspecified; K82.8 Other specified diseases of gallbladder; Z79.890 Hormone replacement therapy
CPT/HCPCS: 36415; 74177; 74183; 76705; 80053; 82150; 83615; 83690; 83735; 84484; 85025; 85610; 85730; 87040; 93005; 96361; 96365; 96366; 96375; 96376; 99285

== ENCOUNTER 2024-03-01 06:01 | Day surgery (SDC) | payer MEDICARE ==
[2024-02-29 09:22] VITALS: BMI 20.9
[2024-03-01] MEDS ORDERED: MIDAZOLAM 2 MG/2 ML VIAL IV PRN (07:00)
[2024-03-01] MEDS: IV FLUID CONTINUATION 1,000 ML IV ONE ×2 (07:00→08:45)
[2024-03-01] MEDS: LACTATED RINGERS 1,000 ML IV SCH (07:09)
[2024-03-01] MEDS: ACETAMINOPHEN TAB 500 MG TAB PO PRN (07:10)
[2024-03-01] MEDS: ONDANSETRON 4 MG/2 ML VIAL IVP ONE (07:10)
[2024-03-01] MEDS: HEPARIN SODIUM,PORCINE 5,000 UNIT/ML 1 ML VIAL SQ PRN (07:10)
[2024-03-01 07:13] LABS: HCT 46.4 % (34.0-46.0); HGB 14.7 gm/dL (11.4-16.0); MCHC 31.7 g/dL (31.0-37.0); MCV 91.5 fL (80.0-100.0); Mean Platelet Volume 8.4; Platelet Count 188 k/uL (150-450); RBC 5.07 m/uL (3.80-5.40); RDW 12.5 % (11.5-15.5); WBC 10.3 k/uL (3.8-10.6)
[2024-03-01] MEDS ORDERED: SUCCINYLCHOLINE CHLORIDE 200 MG/10 ML VIAL IV ONE (07:25)
[2024-03-01] MEDS ORDERED: NEOSTIGMINE 1 MG/ML 10 ML VIAL ONE (07:25)
[2024-03-01] MEDS ORDERED: ROCURONIUM 10 MG/ML (5 ML VIAL) IV ONE (07:25)
[2024-03-01] MEDS ORDERED: PROPOFOL 10 MG/ML 20 ML VIAL IV ONE (07:25)
[2024-03-01] MEDS ORDERED: fentaNYL (PF) 50 MCG/ML 2 ML AMP ONE (07:25)
[2024-03-01] MEDS ORDERED: MIDAZOLAM 2 MG/2 ML VIAL ONE (07:25)
[2024-03-01] MEDS ORDERED: GLYCOPYRROLATE 0.2 MG/ML 2 ML VIAL ONE (07:25)
[2024-03-01] MEDS ORDERED: LIDOCAINE 1% INJ 10MG/ML (20 ML MDV) ONE (07:25)
[2024-03-01 07:29] LABS: ALT 29 U/L (4-34); AST 37 U/L (14-36); African American GFR (CKD) 81 (>60 ml/min/1.73 sqM); Albumin 4.2 g/dL (3.5-5.0); Alkaline Phosphatase 119 U/L (38-126); Anion Gap 8 mmol/L; Blood Urea Nitrogen 18 mg/dL (7-17); Calcium 9.9 mg/dL (8.4-10.2); Carbon Dioxide 26 mmol/L (22-30); Chloride 108 mmol/L (98-107); Glucose 103 mg/dL (74-99); Non-African American GFR(CKD) 70 (>60 ml/min/1.73 sqM); Potassium 4.5 mmol/L (3.5-5.1); Sodium 142 mmol/L (137-145); Total Bilirubin 0.8 mg/dL (0.2-1.3); Total Protein 6.8 g/dL (6.3-8.2)
[2024-03-01] MEDS: BUPIVACAINE (PF) 0.25% 30 ML VIAL SQ ONE (07:53)
[2024-03-01] MEDS ORDERED: traMADol 50 MG TAB PO STA (08:31)
[2024-03-01 08:40] VITALS: RESP 16; TEMP 97
[2024-03-01] MEDS: HYDROmorphone 0.5 MG/0.5 ML SYRINGE IVP PRN (08:51)
[2024-03-01] MEDS: KETOROLAC 15 MG/ML 1 ML VIAL IVP STA (12:35)
[2024-03-01] MEDS: METOCLOPRAMIDE 5 MG/ML 2 ML VIAL IVP STA (12:37)
[2024-03-01] MEDS ORDERED: ACETAMINOPHEN TAB 325 MG TAB PO SCH (13:30)
[2024-03-01 14:08] VITALS: BP 126/68; PULSE 74
[2024-03-01] MEDS ORDERED: IBUPROFEN 600 MG TAB PO SCH (15:00)
--- NOTE | 2024-03-08 14:04 | P.DS ---
Providers Expected date of discharge: 03/08/24 Attending physician: Hermes Elizabeth Primary care physician: Dani [facility] Course: Please refer to chart. Patient underwent elective laparoscopic cholecystectomy. She was discharged home from the recovery room that evening. Plan - Discharge Summary Discharge Rx Participant: Yes New Discharge Prescriptions: New traMADol HCl [Ultram] 50 mg PO Q6H PRN #6 tab PRN Reason: Pain No Action Multivitamins, Thera [Multivitamin (formulary)] 1 tab PO HS diphenhydrAMINE HCL [Benadryl] 25 mg PO HS Simvastatin [Zocor] 40 mg PO HS Levothyroxine Sodium [Synthroid] 50 mcg PO DAILY Calcium Carbonate [Calcium] 600 mg PO HS Discharge Medication List Calcium Carbonate [Calcium] 600 mg PO HS 02/05/24 [History] Levothyroxine Sodium [Synthroid] 50 mcg PO DAILY 02/05/24 [History] Multivitamins, Thera [Multivitamin (formulary)] 1 tab PO HS 02/05/24 [History] Simvastatin [Zocor] 40 mg PO HS 02/05/24 [History] diphenhydrAMINE HCL [Benadryl] 25 mg PO HS 02/05/24 [History] traMADol HCl [Ultram] 50 mg PO Q6H PRN #6 tab 03/01/24 [Rx] Follow up Appointment(s)/Referral(s): Hermes Elizabeth MD [Medical Doctor] - 03/07/24 10:50 am () Patient Instructions/Handouts: *Surgery [facility] - (Anesthesia) Discharge Instructions Outpatient Surgery, Low Fat Diet (DC), Laparoscopic Cholecystectomy (DC) Discharge Disposition: HOME SELF-CARE
--- NOTE | 2024-03-26 16:40 | P.OP ---
Date of Procedure: 03/26/24 Procedure(s) Performed: PREOPERATIVE DIAGNOSIS: Gallstone pancreatitis POSTOPERATIVE DIAGNOSIS: Same PROCEDURE: Laparoscopic cholecystectomy SURGEON: Clara EBL: Minimal see anesthesia record ANESTHESIA: Gen. COMPLICATIONS: None OPERATIVE PROCEDURE: The patient was brought and placed on the operating room [facility] in the supine position. The patient was placed under general anesthesia at that time. The abdomen was prepped and draped in the usual sterile fashion. A small vertical infraumbilical incision was made. The fascia was grasped with the Noemí forceps. The fascia was retracted anteriorly. The Veress needle was advanced into the peritoneal cavity. The saline drop test was normal. Insufflation took place up to 15 mmHg. A 5 mm optical trocar was advanced and the peritoneal cavity. 2 additional 5 mm trochars were placed in the right upper quadrant under direct visualization. A 12 mm trocar was advanced into the epigastric incision site. The gallbladder was retracted superiorly and laterally. The peritoneum overlying the infundibulum was bluntly dissected. The patient's cystic duct was visualized. The junction between the cystic duct common and hepatic duct was identified. The critical view of safety was achieved after blunt dissection. The cystic duct was then divided after placement of 3 12 mm clips on the patient's side and one on the specimen side. The cystic artery was identified and clipped as well. A small vessel was seen along the gallbladder fossa and clipped as well. The gallbladder was then removed from the liver bed using electrocautery. The gallbladder was then removed from the epigastric trocar site with an Endo Catch bag. The gallbladder fossa was irrigated with saline. There was no evidence of any bleeding or biliary drainage seen. The fascia at the 12 millimeter site was closed using a Elijah-Jocelyn 0 Vicryl stitch. The trochars were then removed. The skin at all 4 sites was closed using a 4-0 Monocryl stitch. Skin glue was utilized on the incision sites. At the end of this procedure the sponge and needle counts were correct. DISPOSITION: Stable to the recovery room
== END 2024-03-01 14:43 | disposition home or self-care (01) ==
LOC: OR 06:01
PROVIDERS: ATTEND Surgery
DX: K80.10 Calculus of gallbladder with chronic cholecystitis without obstruction (principal); K85.10 Biliary acute pancreatitis without necrosis or infection; E78.5 Hyperlipidemia, unspecified; E07.9 Disorder of thyroid, unspecified; Z79.890 Hormone replacement therapy; Z79.899 Other long term (current) drug therapy
CPT/HCPCS: 88304; 80053; 85027; 47562; J2250; J0330; J1644; J2710; J2765; J0690; J2405; J2001; J3010; J1885; J2704; J1170; J0665

== ENCOUNTER 2024-07-16 08:37 | Day surgery (SDC) | payer MEDICARE ==
[~2024-07-16 08:37] MED LIST: LIDOCAINE 1% (10MG/ML) FOR IV START INTRADERMA PRN; ONDANSETRON 4 MG/2 ML VIAL IVP PRN
[2024-07-16] MEDS: IV FLUID CONTINUATION 1,000 ML IV ONE (09:03)
[2024-07-16 09:05] VITALS: TEMP 97
[2024-07-16] MEDS: LACTATED RINGERS 1,000 ML IV SCH (09:11)
[2024-07-16] MEDS ORDERED: PROPOFOL 10 MG/ML 20 ML VIAL IV ONE (09:20)
[2024-07-16] MEDS ORDERED: LIDOCAINE 1% INJ 10MG/ML (20 ML MDV) ONE (09:20)
--- NOTE | 2024-07-16 09:25 | P.GSHP ---
History of Present Illness H&P Date: 07/16/24 Chief Complaint: Colon cancer screening 74-year-old female here for colonoscopy. Last colonoscopy she believes 3 to 5 years ago. History of known polyps. No bowel complaints. No family history of colon cancer. 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 COLONOSCOPY. BILAT CATARACTS REMOVED WITH LENS IMPLANTS Past Anesthesia/Blood Transfusion Reactions: No Reported Reaction Additional Past Anesthesia/Blood Transfusion Reaction / Comment(s): slow to arouse after gallbladder Smoking Status: Never smoker - Past Family History Mother Family Medical History: Cancer Medications and Allergies Home Medications Medication Instructions Recorded Confirmed Type Calcium Carbonate [Calcium] 600 mg PO HS 02/05/24 07/16/24 History Levothyroxine Sodium [Synthroid] 50 mcg PO DAILY 02/05/24 07/16/24 History Multivitamins, Thera [Multivitamin 1 tab PO HS 02/05/24 07/16/24 History (formulary)] Simvastatin [Zocor] 40 mg PO HS 02/05/24 07/16/24 History diphenhydrAMINE HCL [Benadryl] 25 mg PO HS 02/05/24 07/16/24 History Allergies Allergy/AdvReac Type Severity Reaction Status Date / Time No Known Allergies Allergy Verified 07/16/24 08:59 Surgical - Exam Vital Signs Temp Pulse Resp BP Pulse Ox 97.0 F L 65 18 173/74 98 07/16/24 09:00 07/16/24 09:00 07/16/24 09:00 07/16/24 09:00 07/16/24 09:00 Physical exam: General: Well-developed, well-nourished HEENT: Normocephalic, sclerae nonicteric Abdomen: Nontender, nondistended Extremities: No edema Neuro: Alert and oriented Assessment and Plan (1) Colon cancer screening Narrative/Plan: Will proceed with colonoscopy at this time. Current Visit: Yes Status: Acute Code(s): Z12.11 - ENCOUNTER FOR SCREENING FOR MALIGNANT NEOPLASM OF COLON SNOMED Code(s): 499198621
--- NOTE | 2024-07-16 09:35 | P.PCN ---
Date of Procedure: 07/16/24 Procedure(s) Performed: PREOPERATIVE DIAGNOSIS: Colon cancer screening with history of polyps POSTOPERATIVE DIAGNOSIS: Diverticulosis PROCEDURE: Colonoscopy ANESTHESIA: MAC SURGEON: Hermes Elizabeth M.D. SPECIMENS: None ENDOSCOPIC PROCEDURE: The patient was placed on the endoscopy table in the left decubitus position. The Olympus colonoscope was inserted into the anus and passed under direct visualization to the base of the cecum. The appendiceal orifice was visualized. From that point the scope was slowly withdrawn inspecting all surfaces carefully. There were no neoplastic inflammatory or polypoid lesions throughout the cecum, ascending, transverse, descending, sigmoid and rectum. There was mild scattered diverticulosis noted. Digital rectal examination was normal. The patient was taken to the recovery room in stable condition per anesthesia guidelines. RECOMMENDATIONS: Resume diet. Repeat colonoscopy 5 to 7 years given history of polyps.
[2024-07-16 10:00] VITALS: BP 137/75; PULSE 67; RESP 20
== END 2024-07-16 10:20 | disposition home or self-care (01) ==
LOC: ORWHC2ENDO 08:37
PROVIDERS: ATTEND Surgery
DX: Z12.11 Encounter for screening for malignant neoplasm of colon (principal); K57.30 Diverticulosis of large intestine without perforation or abscess without bleeding; E78.5 Hyperlipidemia, unspecified; E03.9 Hypothyroidism, unspecified; Z85.820 Personal history of malignant melanoma of skin; Z90.89 Acquired absence of other organs; Z79.890 Hormone replacement therapy; Z79.899 Other long term (current) drug therapy
CPT/HCPCS: J2003; J2704; G0121

== ENCOUNTER → 2024-07-22 | Outpatient (CLI) | payer MEDICARE ==
--- NOTE | 2024-07-26 13:04 | MM ---
Reason for Exam: Screening (asymptomatic). Last mammogram was performed 2 year(s) and 0 month(s) ago. Patient History: Menarche at age 12. First Full-Term at age 22. Postmenopausal. Excisional Biopsy on the Right side. Mother had ovarian cancer, age 53. Risk Values: Aurora 5 year model risk: 1.9%. NCI Lifetime model risk: 4.0%. Prior Study Comparison: 10/01/2019 Bilateral Screening Mammogram, [facility]. 02/02/2021 Bilateral Screening Mammogram, [facility]. 07/13/2022 Bilateral MG 3D screening mammo w/cad, [facility]. Tissue Density: There are scattered areas of fibroglandular density. Findings: Analyzed By CAD. Right breast: There is no suspicious group of microcalcifications or new suspicious mass. Benign-appearing calcifications right breast. Left breast: There is no suspicious group of microcalcifications or new suspicious mass. Overall Assessment: Negative, BI-RAD 1 Management: Screening Mammogram of both breasts in [address] [facility] will attempt to contact patient to return for supplemental views and ultrasound if indicated. Patient should continue monthly self-breast exams. A clinical breast exam by your physician is recommended on an annual basis. This exam should not preclude additional follow-up of suspicious palpable abnormalities. Note on Aurora scores and lifetime risk: 1. A Aurora score greater than 3% is considered moderate risk. If this is the case, consider specialist referral to assess eligibility for a risk reducing agent. 2. If overall lifetime risk for the development of breast cancer is 20% or higher, the patient may qualify for future screening with alternating mammogram and breast MRI. [facility], , 07/26/2024 1:01 PM. Electronically signed and approved by: Aryan Garcia DO
--- NOTE | 2024-07-28 22:50 | BD ---
EXAMINATION TYPE: Axial Bone Density DATE OF EXAM: 07/22/2024 CLINICAL HISTORY: 74 years old Female. ICD-10 CODE: M85.9 DISORDER OF BONE DENSIT , Additional Hist ory: Height: 64.25 Weight: 122.4 FRAX RISK QUESTIONS: Alcohol (3 or more units per day): no Family History (Parent hip fracture): no Glucocorticoids (More than 3mos): no (Ex: prednisone, prednisolone, methylprednisolone, dexamethasone, and hydrocortisone). History of Fracture in Adulthood: no Secondary Osteoporosis: 1. Type 1 Diabetes: no 2. Hyperthyroidism: no 3. Menopause before 45: no 4. Malnutrition: no 5. Chronic liver disease: no Rheumatoid Arthritis: no Current Tobacco Use: no RISK FACTORS HISTORY OF: Hip Fracture (Right/Left): no Spine Fracture: no History of Wrist Fracture: no Surgery to Spine/Hip(right/left)/Wrist (right/left): no MEDICATIONS: Thyroid Medications: Levothyroxine How Lon years Osteoporosis Medications: no EXAM MEASUREMENTS: Bone mineral densitometry was performed using the Last 2 Left System. Bone mineral density as measured about the Lumbar spine is: ----- L1-L4(G/cm2): 1.034 T Score Values are as follows: ----- L1: -2.6 ----- L2: -1.6 ----- L3: -0.6 ----- L4: -0.6 ----- L1-L4: -1.2 Z Score Values are as follows: ----- L1: -0.5 ----- L2: 0.5 ----- L3: 1.5 ----- L4: .5 ----- L1-L4: 0.9 Bone mineral density has: decreased -5.2 % since study of: 07/13/2022 Bone mineral density about the R hip (g/cm2): 0.732 Bone mineral density about the L hip (g/cm2): 0.689* T Score values are as follows: -----R Neck: -2.0 -----L Neck: -2.4 -----R Total: -2.2 -----L Total: -2.5 Z Score values are as follows: -----R Neck: 0.1 -----L Neck: -0.3 -----R Total: -0.2 -----L Total: -0.5 Bone mineral density has: decreased -0.7 % since study of: 07/13/2022 FRAX%s: The graph provided illustrates a 14.9% chance for a major osteoporotic fx and a 5.0% chance f or the hips probability for fx in 10 years time. IMPRESSION: Osteopenia (T Score between -2.5 and -1). There is slightly increased risk of fracture and the patient may be considered for treatment. Re-Screen 2-5 years. NOTE: T-SCORE=SD OF THE YOUNG ADULT MEAN. [facility], , 07/28/2024 10:48 PM
== END | disposition home or self-care (01) ==
LOC: RADMAMWWP 07:01
PROVIDERS: ATTEND Family Medicine
DX: Z12.31 Encounter for screening mammogram for malignant neoplasm of breast (principal); R92.323 Mammographic fibroglandular density, bilateral breasts; M85.89 Other specified disorders of bone density and structure, multiple sites; Z78.0 Asymptomatic menopausal state; Z80.41 Family history of malignant neoplasm of ovary
CPT/HCPCS: 77063; 77067; 77080